=== PATIENT | male | born 1970 | race Caucasian/White ===

== ENCOUNTER → 2016-09-22 14:04 | Outpatient (CLI) | payer MEDICARE ==
[2016-01-28 13:28] VITALS: BMI 34.0
[~2016-09-22 14:04] MED LIST: LEVOXYL75 MCG PO; LIPITOR20 MG PO; PERCOCET 10/3251 TA1 PO; PRINIVIL20 MG PO; TENORMIN100 MG PO; TRICOR145 MG PO; ULTRAM50 MG PO; [UNRECOGNIZED DRUG - REMARK]
== END | disposition home or self-care (01) ==
LOC: D.MRI 14:04
DX: M77.11 Lateral epicondylitis, right elbow (principal)

== ENCOUNTER 2016-10-23 10:09 | Day surgery (SDC) | payer MEDICARE ==
[~2016-10-23] VITALS: Ht 175.3 cm; Wt 97.5 kg
[~2016-10-23 10:09] MED LIST changes: +LEVOXYL100 MCG PO; -LEVOXYL75 MCG PO
[2016-10-23 11:12] LABS: HEMATOCRIT 43.4 % (42.0-54.0); HEMOGLOBIN 15.3 g/dL (13.5-17.5); MCH 30.5 pg (26.0-34.0); MCHC 35.3 g/dL (31.0-37.0); MCV 86.5 fL (80.0-100.0); MEAN PLATELET VOLUME 10.2 fL (7.4-10.4); RBC 5.02 10x6/uL (4.20-6.10)
[2016-10-23] MEDS ORDERED: MOBIC7.5 MG PO (11:36)
[2016-10-23 11:41] VITALS: BP 151/97; Ht 175.3 cm; Wt 97.5 kg
[2016-10-23] MEDS ORDERED: PERCOCET 10/3251 TA1 PO (13:24)
--- NOTE | 2016-10-23 16:05 | NUR ---
1500 DISCHARGE INSTRUCTIONS COMPLETE. PRESCRIPTION FOR PERCOCET GIVEN NO QUESTIONS OR CONCERNS AT THIS TIME. ESCORTED OUT BY VOLUNTEER.
--- NOTE | 2016-10-31 16:21 | OP ---
PATIENT NAME: LUI LIZ MEDICAL RECORD: [id number] :68 LOCATION:[facility] ADMISSION DATE: SURGEON: ABDI HARRELL MD DATE OF OPERATION: 10/23/2016 Orthopedic Surgery Operative Note PREOPERATIVE DIAGNOSIS: Recalcitrant lateral epicondylitis of the right elbow. POSTOPERATIVE DIAGNOSIS: Recalcitrant lateral epicondylitis of the right elbow. PROCEDURE: Revision right epicondylectomy with repair of extensor mechanism. SURGEON: Abdi Harrell MD ANESTHESIA: General. INTRAOPERATIVE COMPLICATIONS: None. SUMMARY OF PATHOLOGIC FINDINGS: The patient had essentially completely torn the extensor reattachment of the lateral epicondyle after his prior surgery. OPERATIVE SUMMARY IN DETAIL: After obtaining the appropriate preoperative orthopedic surgery consent as well as anesthetic consultation, evaluation and clearance, the patient was brought to the operating room and placed on the operating table in supine position. After general laryngeal mask was administered, tourniquet was placed about the proximal aspect of the right upper extremity. Right upper extremity was then prepped and draped in routine sterile fashion. The arm was elevated and exsanguinated, tourniquet inflated to 350 mmHg. Previously utilized incision was utilized again. This was taken directly down through the extensor mass on the lateral aspect of the elbow, the previously placed suture anchor was found and was removed in its entirety. This was copiously irrigated and again, the area of the lateral epicondyle was abraded for a good bleeding bone base. Any appearing tendinous tissue was excised. A 2.9 PushLock was then utilized in a different location for reapproximation of the extensor mechanism, start to tied with a [id number] with FiberWire and oversewn with a #1 Vicryl followed by 2-0 Vicryl and skin antoinette for final closure. Sterile dressings were applied. The patient was awakened and taken to recovery room in stable condition. All final needle and sponge counts were correct. TRANSINT:[id number] Voice Confirmation ID: [id number] DOCUMENT ID: [id number] ABDI HARRELL MD at 1621 CC: [id number] DICTATION DATE: 10/30/16 1356 APPELLATE LAW CLERK: 10/30/16 194 [facility] 10/23/16 [facility] [address] [place], [place] [id number]
== END 2016-10-23 15:00 | disposition home or self-care (01) ==
LOC: D.OPS 10:09 → D.PAN 12:05 → D.OPS 12:30 → D.PAN 13:30 → D.OPS 13:30
PROVIDERS: Anesthesiology
DX: M77.11 Lateral epicondylitis, right elbow (principal); Z01.810 Encounter for preprocedural cardiovascular examination; Z01.811 Encounter for preprocedural respiratory examination; Z01.812 Encounter for preprocedural laboratory examination; I10 Essential (primary) hypertension; Z72.0 Tobacco use

== ENCOUNTER 2017-11-16 07:40 | Inpatient (IN) | payer MEDICARE ==
[~2017-11-16] VITALS: Ht 175.3 cm; Wt 91.8 kg
[2017-11-16] VITALS (7 sets, daily range): BP systolic 111–144; BP diastolic 62–86; Ht 175.3 cm; Wt 91.8 kg
--- NOTE | ~2017-11-16 | HP ---
PATIENT: LUI LIZ MEDICAL RECORD: [id number] ACCOUNT: [id number] LOCATION:[id number] : 68 ADMISSION DATE: 11/16/17 HISTORY AND PHYSICAL EXAMINATION DATE OF ADMISSION: 11/16/2017 CHIEF COMPLAINT: Hematemesis. HISTORY: This is a 47-year-old white male who states he has been vomiting bright red blood off and on for the last 3 days. He has pain in the epigastric area. He has hemochromatosis and has been followed by Dr. Kovacs, but I am not sure if he is actively following him now or not. He is admitted for further care. PAST MEDICAL HISTORY: Gout, hyperlipidemia, hypertension, hypothyroidism, bipolar illness, hemochromatosis, obstructive sleep apnea, chronic cervicalgia. He was admitted into this hospital 3 or 4 years ago with abdominal pain. He had an EGD done by Dr. Barnes on 08/05/2012 at [facility] showing nonhemorrhagic esophageal varices, mild distal esophageal ulcerations, active reflux, erosive gastritis, duodenal bulbar ulcers without visible vessels, severe duodenitis, and hiatal hernia. He had been on Prilosec or other PPI until he stopped taking it months ago or longer because he was not having any other symptoms. He has not drunk any alcohol since last year. PAST SURGICAL HISTORY: Left nephrectomy. He had UVVP by Dr. Gardner in 2011. He had Achilles tendon repair in the past. HABITS: He is a smoker. He stopped drinking last year. CURRENT MEDICATIONS: Venlafaxine ER 75 mg once a day, clonidine 0.1 mg q. 6 hours as needed for elevated blood pressure, lisinopril 20 mg a day, levothyroxine 100 mcg once a day. SOCIAL HISTORY: . FAMILY HISTORY: Noncontributory. REVIEW OF SYSTEMS: GENERAL: No major weight changes. HEENT: No particular sinus or allergy problems. RESPIRATORY: No history of emphysema or asthma. CARDIAC: No chest pain or palpitations. GASTROINTESTINAL: He has had gastritis, esophageal varices, ulcers, duodenal ulcers, and erosions. MUSCULOSKELETAL: Chronic cervicalgia and is having some low back pains as well. GENITOURINARY: No significant problems there. NEUROLOGIC: No seizures or headaches. PSYCHIATRIC: He has history of bipolar illness. PHYSICAL EXAMINATION: VITAL SIGNS: Temperature 96.8, pulse 65, respirations 20, blood pressure 113/68, O2 sat 99%. GENERAL: He is awake, alert, and in no distress. HEENT: Grossly within normal limits. HISTORY AND PHYSICAL [id number] LUI LIZ NECK: Supple. HEART: Regular rate and rhythm. LUNGS: Clear. ABDOMEN: Soft. There is some tenderness to palpation in the epigastric area. No guarding. No rebound. No mass. EXTREMITIES: No edema. LABORATORY DATA: CBC with white count of 7500, hemoglobin 16.7, hematocrit 45, and platelets 191,000. Basic metabolic panel is normal. Liver functions are normal. TSH 1.78. INR 0.96. Iron level is 100. ASSESSMENT: 1. Hematemesis. 2. History of esophageal varices. 3. History of peptic ulcer disease. 4. History of hemochromatosis. 5. Bipolar illness. PLAN: Consult GI. He was started on Protonix drip. Other tests or procedures as warranted. TRANSINT:[id number] Voice Confirmation ID: [id number] DOCUMENT ID: [id number] HONG MAN MD at 0820 CC: [id number] DICTATION DATE: 11/16/17 1500 MANAGEMENT INTERN: 11/16/17 1522 ADM IN [facility] [address] [place] [address]
[~2017-11-16 07:40] MED LIST changes: +MOBIC7.5 MG PO
[2017-11-16 08:25] LABS: BASOPHILS 0.8 % (0-2); EOSINOPHILS 0.5 % (0-7); HEMATOCRIT 45.1 % (42.0-54.0); HEMOGLOBIN 16.7 g/dL (13.5-17.5); IMMATURE GRANULOCYTES 1.6 % (0-5); LYMPHOCYTES 17.9 % (15-50); MCH 32.4 pg (26.0-34.0); MCV 87.4 fL (80.0-100.0); MEAN PLATELET VOLUME 10.3 fL (7.4-10.4); MONOCYTES 8.1 % (2-11); NEUTROPHILS 71.1 % (40-80); RBC 5.16 10x6/uL (4.20-6.10); RDW 13.9 % (11.5-14.5); WBC 7.5 10x3/uL (4.8-10.8)
[2017-11-16 08:30] LABS: PLATELET COUNT 191 10x3/uL (130-400)
[2017-11-16 08:31] LABS: INR 0.96 (0.85-1.17); PROTIME 12.4 SECONDS (11.6-15.0)
[2017-11-16 08:32] LABS: APTT 26.3 SECONDS (22.8-39.4)
[2017-11-16 08:56] LABS: ALBUMIN 3.8 g/dL (3.4-5.0); ANION GAP 11.4 mmol/L (8-16); BILIRUBIN - TOTAL 0.66 mg/dL (0.2-1.3); CALCIUM 8.3 mg/dL (8.5-10.1); CARBON DIOXIDE 26.4 mmol/L (21.0-32.0); CREATININE - SERUM 1.2 mg/dL (0.6-1.3); POTASSIUM - SERUM 3.8 mmol/L (3.5-5.1); PROTEIN - SERUM 7.1 g/dL (6.4-8.2); THYROID STIMULATING HORMONE 1.78 uIU/mL (0.36-3.74)
[2017-11-16] MEDS ORDERED: CATAPRES0.1 MG PO (14:51)
[2017-11-16] MEDS ORDERED: EFFEXOR XR75 MG PO (14:52)
[2017-11-16 14:59] LABS: HEMATOCRIT 42.1 % (42.0-54.0); HEMOGLOBIN 15.2 g/dL (13.5-17.5)
[2017-11-17 03:19] VITALS: BP 113/67
[2017-11-17 06:27] LABS: BASOPHILS 0.6 % (0-2); EOSINOPHILS 1.4 % (0-7); HEMATOCRIT 43.3 % (42.0-54.0); HEMOGLOBIN 15.5 g/dL (13.5-17.5); IMMATURE GRANULOCYTES 1.8 % (0-5); LYMPHOCYTES 28.8 % (15-50); MCHC 35.8 g/dL (31.0-37.0); MEAN PLATELET VOLUME 10.7 fL (7.4-10.4); MONOCYTES 8.1 % (2-11); NEUTROPHILS 59.3 % (40-80); PLATELET COUNT 176 10x3/uL (130-400); RBC 4.84 10x6/uL (4.20-6.10); RDW 14.2 % (11.5-14.5); WBC 7.3 10x3/uL (4.8-10.8)
[2017-11-17 06:32] LABS: MCV 89.5 fL (80.0-100.0)
[2017-11-17 06:50] LABS: CALC OSMOLALITY 276 mosm/kg (275-300); CALCIUM 7.8 mg/dL (8.5-10.1); CARBON DIOXIDE 29.5 mmol/L (21.0-32.0); CHLORIDE - SERUM 106 mmol/L (98-107); CREATININE - SERUM 1.1 mg/dL (0.6-1.3); GLUCOSE 84 mg/dL (74-106); POTASSIUM - SERUM 3.7 mmol/L (3.5-5.1); SODIUM 140 mmol/L (136-145); UREA NITROGEN 9 mg/dL (7-18); eGFR NON AFRICAN AMERICAN 76 mL/min (90-120)
[2017-11-17 09:02] VITALS: BP 122/77
[2017-11-17 11:54] VITALS: BP 167/92
[2017-11-17 17:38] VITALS: BP 122/97
[2017-11-17 20:00] VITALS: BP 131/84
[2017-11-18 04:00] VITALS: BP 95/51
[2017-11-18 09:33] VITALS: BP 167/100
[2017-11-18 11:30] VITALS: BP 184/109
[2017-11-18 20:00] VITALS: BP 169/105
[2017-11-19 04:00] VITALS: BP 148/93
[2017-11-19 06:05] LABS: BASOPHILS 0.7 % (0-2); EOSINOPHILS 3.1 % (0-7); HEMATOCRIT 40.7 % (42.0-54.0); HEMOGLOBIN 14.8 g/dL (13.5-17.5); IMMATURE GRANULOCYTES 0.7 % (0-5); LYMPHOCYTES 30.1 % (15-50); MCHC 36.4 g/dL (31.0-37.0); MCV 88.1 fL (80.0-100.0); MEAN PLATELET VOLUME 10.4 fL (7.4-10.4); MONOCYTES 10.1 % (2-11); NEUTROPHILS 55.3 % (40-80); PLATELET COUNT 175 10x3/uL (130-400); RBC 4.62 10x6/uL (4.20-6.10); RDW 13.8 % (11.5-14.5); WBC 5.7 10x3/uL (4.8-10.8)
[2017-11-19 06:14] LABS: CALC OSMOLALITY 274 mosm/kg (275-300); CALCIUM 8.2 mg/dL (8.5-10.1); CHLORIDE - SERUM 104 mmol/L (98-107); GLUCOSE 84 mg/dL (74-106); POTASSIUM - SERUM 3.3 mmol/L (3.5-5.1); SODIUM 140 mmol/L (136-145); UREA NITROGEN 4 mg/dL (7-18); eGFR NON AFRICAN AMERICAN 85 mL/min (90-120)
[2017-11-19 13:34] VITALS: BP 135/79
[2017-11-19 16:48] VITALS: BP 174/111
[2017-11-19 21:09] VITALS: BP 173/99
[2017-11-20 05:06] VITALS: BP 122/77
[2017-11-20 08:41] VITALS: BP 146/93
[2017-11-20] MEDS ORDERED: OMEPRAZOLE20 M1 PO (08:54)
[2017-11-20] MEDS ORDERED: FLAGYL500 MG PO (08:54)
[2017-11-20] MEDS ORDERED: ATIVAN1 MG PO (08:55)
[2017-11-26 18:11] LABS: OVA + PARASITE EXAM Final report (())
== END 2017-11-20 10:24 | disposition home or self-care (01) | DRG 392 ==
LOC: D.ER 07:40 → D.EDHOLD 09:30 → D.MS 09:30
PROVIDERS: Emergency Medicine; Internal Medicine Gastroenterology
PROC: 0DD78ZX Extraction of Stomach, Pylorus, Via Natural or Artificial Opening Endoscopic, Diagnostic (ICD-10-PCS; principal; 2017-11-17 11:30)
PROC: 0DDK8ZX Extraction of Ascending Colon, Via Natural or Artificial Opening Endoscopic, Diagnostic (ICD-10-PCS; 2017-11-19)
PROC: 0DDL8ZX Extraction of Transverse Colon, Via Natural or Artificial Opening Endoscopic, Diagnostic (ICD-10-PCS; 2017-11-19)
DX: K52.9 Noninfective gastroenteritis and colitis, unspecified (principal); K92.0 Hematemesis; K29.70 Gastritis, unspecified, without bleeding; K29.80 Duodenitis without bleeding; K44.9 Diaphragmatic hernia without obstruction or gangrene; M10.9 Gout, unspecified; E78.5 Hyperlipidemia, unspecified; I10 Essential (primary) hypertension; E03.9 Hypothyroidism, unspecified; F41.9 Anxiety disorder, unspecified; F31.9 Bipolar disorder, unspecified; G47.33 Obstructive sleep apnea (adult) (pediatric); Z90.5 Acquired absence of kidney; K57.30 Diverticulosis of large intestine without perforation or abscess without bleeding; K64.8 Other hemorrhoids; E83.119 Hemochromatosis, unspecified

== ENCOUNTER 2019-09-23 11:13 | Emergency (ER) | payer MEDICARE ==
[~2019-09-23] VITALS: Ht 175.3 cm; Wt 88.6 kg
[2019-09-23 11:13] VITALS: BP 146/100; Ht 175.3 cm; Wt 88.6 kg
[~2019-09-23 11:13] MED LIST changes: +ATIVAN1 MG PO; +CATAPRES0.1 MG PO; +EFFEXOR XR75 MG PO; +FLAGYL500 MG PO; +OMEPRAZOLE20 M1 PO
[2019-09-23 12:05] LABS: BASOPHILS 0.5 % (0-2); EOSINOPHILS 1.6 % (0-7); HEMOGLOBIN 15.5 g/dL (13.5-17.5); IMMATURE GRANULOCYTES 0.6 % (0-5); LYMPHOCYTES 20.3 % (15-50); MCH 29.8 pg (26.0-34.0); MCHC 34.4 g/dL (31.0-37.0); MCV 86.5 fL (80.0-100.0); MEAN PLATELET VOLUME 9.8 fL (7.4-10.4); MONOCYTES 7.9 % (2-11); NEUTROPHILS 69.1 % (40-80); PLATELET COUNT 196 10x3/uL (130-400); RDW 12.3 % (11.5-14.5)
[2019-09-23 12:11] LABS: BILIRUBIN NEGATIVE (NEGATIVE); GLUCOSE NEGATIVE (NEGATIVE); KETONE NEGATIVE (NEGATIVE); NITRITE NEGATIVE (NEGATIVE); SPECIFIC GRAVITY 1.015 (1.005-1.020); UROBILINOGEN NORMAL (NORMAL)
[2019-09-23 12:12] LABS: UDS - AMPHET POSITIVE QUAL (NEGATIVE); UDS - BARB NEGATIVE QUAL (NEGATIVE); UDS - BENZO NEGATIVE QUAL (NEGATIVE); UDS - COCAINE NEGATIVE QUAL (NEGATIVE); UDS - OPIATE NEGATIVE QUAL (NEGATIVE); UDS - PCP NEGATIVE QUAL (NEGATIVE); UDS - THC NEGATIVE QUAL (NEGATIVE)
[2019-09-23 12:14] LABS: CALC OSMOLALITY 269 mosm/kg (275-300); CALCIUM 8.8 mg/dL (8.5-10.1); CARBON DIOXIDE 26.8 mmol/L (21.0-32.0); CHLORIDE - SERUM 99 mmol/L (98-107); GLUCOSE 107 mg/dL (74-106); POTASSIUM - SERUM 3.8 mmol/L (3.5-5.1); SODIUM 134 mmol/L (136-145); UREA NITROGEN 19 mg/dL (7-18); eGFR NON AFRICAN AMERICAN 84 mL/min (90-120)
[2019-09-23 12:18] LABS: ALBUMIN 3.6 g/dL (3.4-5.0); ALKALINE PHOSPHATASE 84 U/L (30-120); ALT (SGPT) 27 U/L (10-68); BILIRUBIN - TOTAL 0.33 mg/dL (0.2-1.3); MAGNESIUM - SERUM 2.1 mg/dL (1.8-2.4); PROTEIN - SERUM 7.5 g/dL (6.4-8.2)
== END 2019-09-23 13:00 | disposition home or self-care (01) ==
LOC: D.ER 11:13
PROVIDERS: Family Medicine
DX: F15.10 Other stimulant abuse, uncomplicated (principal); R73.9 Hyperglycemia, unspecified; F10.129 Alcohol abuse with intoxication, unspecified; Y90.2 Blood alcohol level of 40-59 mg/100 ml; E07.9 Disorder of thyroid, unspecified; I10 Essential (primary) hypertension